=== PATIENT | male | born 1960 | race African-American/Black ===

== ENCOUNTER 2016-07-25 12:57 | Emergency (ER) | payer SELFPAY ==
[2016-07-25 13:03] VITALS: TEMP 97.5; O2SAT 92
[2016-07-25] MEDS ORDERED: PROMETHAZINE HCL 25 MG TAB PO ONE (13:49)
[2016-07-25] MEDS ORDERED: HYDROmorphONE/DILAUDID 1 MG/ML SYR IM ONE (13:52)
--- NOTE | 2016-07-25 14:36 | EDPHY ---
H & P Stated Complaint: crohns flare up/n/v/d Time Seen by Provider: 07/25/16 13:25 HPI/ROS: Chief Complaint: Crohn's flare HPI: 55-year-old male presenting complaining of a Crohn's flare. Patient states he has a history of Crohn's disease and has been having low crampy abdominal pain for the last 2 days. He has not had any blood, has had any mucus , no urinary symptoms. Does not have a history of perforations or obstructions in the past. Patient does state that he has had bowel resection and ostomy and reversal. Patient states he was seen here about a year ago for the same. He gets these flares about 2 to 3 times a year. He works in the [employer] in [place] revealing history normally lives in [facility] and but is here on a job. He does not feel that any significant testing is necessary today. He said this is consistent with his usual flare. Patient seems very knowledgeable about his disease and is presentation. Normally takes Percocet 12/27/2024 days to control his medications as well as oral Phenergan. Denies fevers or chills. No chest pain. No shortness of breath. No urinary symptoms. Patient states for these force usually gets IM Phenergan and Dilaudid with improvement in his symptoms. Given his peripheral vascular disease on his arms he tries to avoid IV lines when possible. Patient is refusing other further workup at this time. ROS: 10 point Review of Systems is negative except as noted in the HPI. PMH: Crohn's disease Lymphoma Asthma Peripheral vascular disease Ernesto syndrome Renal insufficiency Medications: Albuterol Phenergan Metamucil Percocet 10/325 Tussionex Allergies: Toradol, IV dye, morphine, Bentyl, sulfa, Motrin, aspirin, Ultram, acetaminophen, droperidol, dicyclomine Social History: No smoking, occasional alcohol, no recreational drug use Family History: non-contributory Physical Exam: Gen: Awake, Alert, No Distress HEENT: Nose: no rhinorrhea Eyes: PERRLA, EOMI Mouth: Moist mucosa Neck: Supple, no JVD Chest: nontender, lungs clear to auscultation Heart: S1, S2 normal, no murmur Abd: Soft, multiple scars consistent with prior laparotomies and ostomy with take them. Soft with mild to moderate bilateral lower abdominal pain., no guarding Back: no CVA tenderness, no midline tenderness Ext: no edema, non-tender Skin: no rash Neuro: CN II-XII intact, Sensation grossly intact, Strength 5/5 in bilateral upper and lower extremities - Personal History Current Tetanus/Diphtheria Vaccine: Yes Tetanus Vaccine Date: 2012 - Medical/Surgical History Hx Asthma: Yes Hx Chronic Respiratory Disease: No Hx Diabetes: No Hx Cardiac Disease: No Hx Renal Disease: No Hx Cirrhosis: No Hx Alcoholism: No Hx HIV/AIDS: No Hx Splenectomy or Spleen Trauma: No Other PMH: renal insuffieciency, pvd, crohn's, bowel resection x 5, colostomy, brayden's syndrome - Social History Smoking Status: Current every day smoker Constitutional: Initial Vital Signs Temperature (C) 36.4 C 07/25/16 13: Heart Rate 86 07/25/16 13: Respiratory Rate 20 07/25/16 13: Blood Pressure 179/101 H 07/25/16 13: O2 Sat (%) 92 07/25/16 13: O2 Delivery Mode Room Air Allergies/Adverse Reactions: acetaminophen [From Darvocet-N 100] Allergy (Unknown, Verified 07/25/16 13:01) aspirin [Aspirin] Allergy (Unknown, Verified 07/25/16 13:01) codeine [Codeine] Allergy (Unknown, Verified 07/25/16 13:01) dicyclomine HCl [From Bentyl] Allergy (Unknown, Verified 07/25/16 13:01) droperidol [Droperidol] Allergy (Unknown, Verified 07/25/16 13:01) ibuprofen [From Motrin] Allergy (Unknown, Verified 07/25/16 13:01) ketorolac tromethamine [From Toradol] Allergy (Unknown, Verified 07/25/16 13:01) morphine [Morphine] Allergy (Unknown, Verified 07/25/16 13:01) prednisone [Prednisone] Allergy (Unknown, Verified 07/25/16 13:01) propoxyphene napsylate [From Darvocet-N 100] Allergy (Unknown, Verified 13:01) Sulfa (Sulfonamide Antibiotics) Allergy (Unknown, Verified 07/25/16 13:01) tramadol HCl [From Ultram] Allergy (Unknown, Verified 07/25/16 13:01) IV CONTRAST DYE Allergy (Unknown, Uncoded 01/18/13 16:40) PPD Allergy (Unknown, Uncoded 01/18/13 16:40) Home Medications: Medication Instructions Recorded ALBUTEROL HFA ICU 02/14/09 Metamucel 02/14/09 PERCOCET 02/14/09 Phenergan mg 02/14/09 Tussionex 02/14/09 Oxycodone HCl/Acetaminophen 1 each PO Q4 PRN #10 tablet 01/18/13 [Percocet 10-325 mg Tablet] Oxycodone HCl/Acetaminophen 1 each PO Q6 PRN #14 tablet 11/01/14 [Percocet 10-325 mg Tablet] oxyCODONE HCL/ACETAMINOPHEN 1 each PO Q6 #15 tablet 10/15/15 [Percocet 10-325 mg Tablet] oxyCODONE HCL/ACETAMINOPHEN 1 each PO Q6 PRN #10 tablet 07/25/16 [Percocet 10-325 mg Tablet] Medical Decision Making ED Course/Re-evaluation: I reviewed the patient's chart. He ate similar presentation about a year ago. Patient is here requesting narcotic pain medications however he does seem very familiar with his disease process in his history and surgical scarring is suggestive of Crohn's disease with surgical repairs. I will give him a single dose of IM narcotics here and reassess. Patient states he feels significantly improved. He is asking me to refill his prescriptions for Percocet 12/27/2024 number 30. I told him I am willing to write him for at most 10 and no more. I will refer him for outpatient follow- up for any other concerns. - Data Points Medications Given: Discontinued Medications Hydromorphone HCl (Dilaudid) 4 mg IM EDNOW ONE Stop: 07/25/16 13:53 Last Admin: 07/25/16 14:25 Dose: 4 mg Promethazine HCl (Phenergan) 25 mg PO EDNOW ONE Stop: 07/25/16 13:50 Last Admin: 07/25/16 14:25 Dose: 25 mg Departure - Departure Disposition: Home, Routine, Self-Care Clinical Impression: Abdominal pain Condition: Good Instructions: Acute Abdominal Pain (ED) Additional Instructions: Follow up with primary care physician in 3-4 days. Return for increasing pain, nausea, vomiting, fevers, chills, or any other concerns. Referrals: NONE *PRIMARY CARE P,. [Primary Care Provider] - As per Instructions Rose Chambers MD [Doctor of Osteopathy] - As per Instructions Prescriptions: oxyCODONE HCL/ACETAMINOPHEN [Percocet 10-325 mg Tablet] 1 each PO Q6 PRN #10 tablet PRN Reason: Pain, Severe
[2016-07-25 15:25] VITALS: BP 163/89; PULSE 72; RESP 16
== END 2016-07-25 15:24 | disposition home or self-care (01) ==
DX: R10.31 Right lower quadrant pain (principal); R10.32 Left lower quadrant pain; F17.200 Nicotine dependence, unspecified, uncomplicated; J45.909 Unspecified asthma, uncomplicated
CPT/HCPCS: J1170